=== PATIENT | female | born 1970 | race Caucasian/White ===

== ENCOUNTER 2020-12-07 13:00 | Outpatient (REF) | payer OTHER, SELFPAY ==
--- NOTE | 2020-12-07 16:27 | MHC.AU.P13 ---
Adult Audiological Evaluation Date of Visit: 12/07/20 Reason for Appointment: Audiological evaluation to monitor the status of Ms. Funes's hearing loss. She has a known bilateral, sensorineural hearing loss. She reports that she lost her hearing aids several months ago and has been unable to locate them. Ms. Funes states that she's been having a lot of difficulty hearing and understanding without the hearing aids, especially when people are wearing masks. She notes that her family complains that she's not hearing. She denies any significant changes to her hearing or medical history. [place] [facility] [place] Mild to moderate sensorineural hearing loss from 4480-5676 Hz bilaterally. Ear History: Bothersome Tinnitus/Ringing/Noises in Ears: Both Ears Medical History: Medical History: Per physician order: AIDS/HIV Hearing Instrument History- Right Ear: Brick Or Block Maker: Oticon Model: Opn 2 miniRITE Serial Number: [id number] Battery Size: 312 Warranty: Repair: 08/26/2021 L& Dispensed By: [facility] Date of Fittin08/13/2018 Hearing Instrument History- Left Ear: Brick Or Block Maker: Oticon Model: Opn 2 miniRITE Serial Number: [id number] Battery Size: 312 Warranty: Repair: 08/26/2021 L& Dispensed By: [facility] Date of Fittin08/13/2018 Otoscopy: Right Ear: Unremarkable Left Ear: Unremarkable Tympanometry: Right Ear: Reduced Middle Ear Compliance (Type As) Left Ear: Reduced Middle Ear Compliance (Type As) Hearing Evaluation: Transducer(s) Used: Insert Earphones, Bone Conduction Method: Conventional Audiometry Stimuli Used: Pure Tones Right Ear: Description of Hearing: Normal hearing from 250-1000 Hz, sloping to a mild to moderate sensorineural hearing loss from 1408-4830 Hz, and rising to normal hearing from 8179-2267 Hz. Left Ear: Description of Hearing: Normal hearing from 250-1000 Hz, sloping to a mild to moderate sensorineural hearing loss from 6915-5355 Hz, and rising to normal hearing from 1212-2279 Hz. Speech Recognition Threshold (SRT): Method Used: Monitored Live Voice Stimuli Used: Spondee Words Right Ear: 30 dBHL Left Ear: 25 dBHL Word Discrimination: Method: Recorded Lists Word Lists Used: NU-6 Right Ear: 92% at 70 dBHL Left Ear: 92% at 70 dBHL Comparison: Compared to the most recent evaluation: Hearing is stable. Recommendations: Recommendations: Medical clearance from a physician is required before fitting. Hearing Aid Fitting will be scheduled when all materials arrive. See Hearing Aid Evaluation report for more information. Recommendations (Other): Requesting prior authorization from her insurance to order replacement hearing aids. Diagnosis: Primary Diagnosis: H90.3 Bilateral Sensorineural Hearing Loss Services Performed: Services Performed: Comprehensive Audiological Evaluation (CPT 36285) Tympanometry (CPT 81778) Signature: Provider: Tiffanie Navarrete, CCC-A
--- NOTE | 2020-12-07 16:29 | MHC.AU.P13 ---
Hearing Aid Evaluation- Binaural Date of Visit: 12/07/20 Description of Hearing: Mild to moderate sensorineural hearing loss from 8484-5353 Hz bilaterally. Current Hearing Instrument Information: Oticon Opn 2 miniRITE (LOST) Additional Information: Ms. Funes is in need of replacement hearing aids, as she lost her previous ones and they are no longer under warranty. She believes that were lost when she took them out to go to bed. She feels like they are easily lost at home and has trouble keeping track of them. I am recommending rechargeable hearing aids, so that she has a place that she has to store them every night, and will be less likely to lose them in the future. Hearing Instrument Selection: Right Ear: Plate Hanger: Oticon Model: Opn 2 S miniRITE-R Battery Size: 312 Color: 94 Terracotta Receptionist Airline Lounge: Size 1 85 gain Type of Dome: 6mm open Left Ear: Plate Hanger: Oticon Model: Opn 2 S miniRITE-R Battery Size: 312 Color: 94 Terracotta Receptionist Airline Lounge: Size 1 85 gain Type of Dome: 6mm open Plan: Plan of Care for Hearing Instrument Fitting: Patient wishes to purchase hearing aids as prescribed Action Taken/Action Needed: Prior authorization to be requested Medical Clearance to be requested from PCP/ENT Hearing Fitting to be scheduled when materials arrive Comments: PA will be submitted when medical clearance is received. Diagnosis Code(s): Primary Diagnosis: H90.3 Bilateral Sensorineural Hearing Loss Signature: Provider: Tiffanie Navarrete, [facility]
--- NOTE | 2020-12-07 16:30 | MHC.AU.MED ---
Medical Clearance for Hearing Instrumentation Date: 12/07/20 Patient Name: Alexa Funes Date of : 1970 Referring Provider: Fadi Ang MD We have seen your patient on 12/07/20 and have determined that they are a candidate for amplification (See accompanying report). Specifically, they would benefit from: Hearing aid use in both ears There is a statute that addresses Medical Evaluation Requirements prior to fitting a patient with a hearing aid. According to [place] statute [facility] CMR:6.03(1), (a) General. Except as provided in 265 CMR 6.03(1)(b), a backup administrator shall not sell a hearing aid unless the prospective user has presented to the backup administrator a written statement signed by a licensed physician that states that the patient's hearing loss has been medically evaluated and the patient may be considered a candidate for a hearing aid. The medical evaluation must have taken place within the preceding six months. Please note: Due to the [place] Statute referenced above, we cannot accept a signature other than that of a licensed physician. CATH LABORATORY TECHNICIAN and PA signatures cannot be accepted. I am in agreement with the above recommendation. There is no medical contraindication for hearing instrumentation. Physician Signature Date Physician Name (Printed)
== END 2020-12-07 13:01 | disposition home or self-care (01) ==
LOC: HO.SH 13:00
PROVIDERS: Visit Provider Internal Medicine Infectious Disease
DX: Z46.1 Encounter for fitting and adjustment of hearing aid (principal); H90.3 Sensorineural hearing loss, bilateral
CPT/HCPCS: 92557; 92567; 92591

== ENCOUNTER 2020-12-12 15:17 | Outpatient (REF) | payer OTHER, SELFPAY | END 2020-12-12 15:18 | disposition home or self-care (01) | LOC: HO.LAB 15:17 | PROVIDERS: Visit Provider Internal Medicine | DX: Z20.822 Contact with and (suspected) exposure to COVID-19 (principal) | CPT/HCPCS: 36415; C9803; U0003 ==

== ENCOUNTER 2021-01-29 15:02 | Outpatient (REF) | payer OTHER, SELFPAY | END 2021-01-29 15:03 | disposition home or self-care (01) | LOC: HO.HAP 15:02 | PROVIDERS: Visit Provider Internal Medicine Infectious Disease | DX: Z46.1 Encounter for fitting and adjustment of hearing aid (principal); H90.3 Sensorineural hearing loss, bilateral | CPT/HCPCS: V5011; V5020; V5160; V5261 ==

== ENCOUNTER 2021-05-10 11:40 | Outpatient (REF) | payer OTHER, SELFPAY | END 2021-05-10 11:41 | disposition home or self-care (01) | LOC: HO.HAP 11:40 | PROVIDERS: Visit Provider Internal Medicine Infectious Disease | DX: Z13.89 Encounter for screening for other disorder (principal) ==